=== PATIENT | male | born 1990 | race Caucasian/White ===

== ENCOUNTER 2016-10-08 06:16 | Emergency (ER) | payer BC, SELFPAY ==
[2016-10-08 06:38] LABS: Blood, Urine Negative (Negative); Clarity Clear (Clear); Glucose, Urine (Dipstick) Negative (Negative); Leukocyte Negative (Negative); Nitrite Negative (Negative); Protein, Urine (Dipstick) Trace mg/dL (Neg-Trace)
[2016-10-08] MEDS ORDERED: Ondansetron HCl/PF 4 MG/2 ML Vial ONE (06:46)
[2016-10-08 06:50] LABS: Bilirubin Negative (Negative)
[2016-10-08 06:53] LABS: #Basophils 0.1 thou/uL (0.0-0.2); #Lymphocytes 1.1 thou/uL (1.20-3.40); #Monocytes 0.7 thou/uL (0.11-0.59); #Neutrophils 8.6 thou/uL (1.40-6.50); %Basophils 0.6 % (0.0-1.0); %Eosinophils 0.3 % (0.0-10.0); %Lymphocytes 10.5 % (21.0-51.0); %Monocytes 6.8 % (0.0-10.0); %Neutrophils 81.7 % (42.0-75.0); Hemoglobin 15.7 g/dL (14.0-18.0); Mean Corpuscular HGB CONC 31.4 g/dL (32.0-36.0); Mean Corpuscular Volume 82.8 fl (80.0-94.0); Platelet Count 200 thou/uL (130-400); RBC Distribution Width 13.5 % (11.5-14.5); Red Blood Cell (RBC) Count 6.04 mill/uL (4.70-6.10); White Blood Cell (WBC) Count 10.5 thou/uL (4.8-10.8)
[2016-10-08 06:57] LABS: ALT (SGPT) 59 U/L (0-55); AST (SGOT) 35 U/L (5-34); Albumin 4.5 g/dL (3.5-5.0); Alkaline Phosphatase 77 U/L (40-150); Anion Gap 14 mmol/L (10-20); BUN (Urea Nitrogen) 15 mg/dL (8.9-20.6); Bilirubin, Total 0.6 mg/dL (0.2-1.2); Calc. Creatinine Clearance 0 mL/min (70-130); Calcium 8.8 mg/dL (7.8-10.44); Carbon Dioxide 24 mmol/L (22-29); Chloride 105 mmol/L (98-107); Estimated GFR-MDRD 74; Globulin 3.4 g/dL (2.4-3.5); Glucose 116 mg/dL (70-105); Lipase 17 U/L (8-78); Potassium 3.6 mmol/L (3.5-5.1); Protein, Total 7.9 g/dL (6.0-8.3); Sodium 139 mmol/L (136-145)
[2016-10-08] MEDS ORDERED: Piperacillin/Tazobactam 3.375 GM VIAL ONE (07:58)
[2016-10-08] MEDS ORDERED: Sodium Chloride 0.9% 100 ML ONE (07:58)
--- NOTE | 2016-10-08 21:40 | CT ---
PRELIMINARY REPORT/[facility]/EMERGENCY AFTER HOURS PROCEDURE: Addendum created by Melvin Neville MD on 10/08/2016 7:49 AM Central Time ([place] \T\ [place]) The above was read and discussed at approximately 7:49 AM CDT on10/08/2016 with the attending vasyli Dr. RAJAN chandra JASON. Initial Report created on 10/08/2016 7:38 AM Central Time ([place] \T\ [place]) EXAM: CT Abdomen and Pelvis With Intravenous Contrast CLINICAL HISTORY: 26 years old, male; Pain; Abdominal pain; Acute; Patient HX: Rlq pain rebound tenderness TECHNIQUE: Axial computed tomography images of the abdomen and pelvis with intravenous contrast. Coronal reform atted images were created and reviewed. EXAM DATE/TIME: 10/08/2016 7:07 AM COMPARISON: No relevant prior studies available. FINDINGS: Lower thorax: Mild dependent atelectasis is present. ABDOMEN: Liver: Mild fatty infiltration of the liver. Gallbladder and bile ducts: Unremarkable. Pancreas: Unremarkable. Spleen: normal Adrenals: Unremarkable. No mass. Kidneys and ureters: Unremarkable. No solid mass. No hydronephrosis. Stomach and bowel: Air and fluid filled large bowel. Numerous loops of air and fluid filled small jennifer wel. Nondilated. Favor ileus. Appendix: Apparent calcifications adjacent to the origin of the appendix. The appendix is mildly pro minent extending inferiorly adjacent to the right psoas muscle. Diameter of approximately 9 mm. Correlate clinically regarding early appendicitis. PELVIS: Bladder: Unremarkable. No mass. Reproductive: normal. No mass ABDOMEN and PELVIS: Intraperitoneal space: No free fluid within the pelvis or within the dependent portions of the perit oneum. No free air. Bones/joints: No acute fracture. No dislocation. Soft tissues: Unremarkable. Vasculature: Unremarkable. No abdominal aortic aneurysm. Lymph nodes: -Numerous mesenteric lymph nodes. Correlate regarding the possibility of an enteritis a nd/or adenitis. IMPRESSION: 1. Apparent calcifications adjacent to the origin of the appendix. The appendix is mildly prominent extending inferiorly adjacent to the right psoas muscle. Diameter of approximately 9 mm. Correlate c linically regarding early appendicitis. 2. Mild fatty infiltration of the liver. 3. Air and fluid filled large bowel. 4. Numerous loops of air and fluid filled small bowel. Nondilated. Favor ileus. 5. -Numerous mesenteric lymph nodes. Correlate regarding the possibility of an enteritis and/or marycarmen itis. Thank you for allowing us to participate in the care of your patient. Dictated and Authenticated by: Melvin Neville MD 10/08/2016 7:38 AM Central Time ([place] \T\ [place]) FINAL REPORT CT ABDOMEN AND PELVIS WITH CONTRAST 10/08/[address] of the abdomen and pelvis was performed for evaluation of right lower quadrant pain. Axial slices were acquired and coronal reconstructions were done after giving IV contrast. oral contrast was withheld by request. The patient presents with right lower quadrant pain. The lung bases show several areas of linear stranding suggestive of subsegmental atelectasis. Any fl uid present is minimal. The liver is not enlarged, but is diffusely low in density consistent with diffuse fatty infiltratio n. The spleen is mildly enlarged measuring about 15 cm in length on the axial images. The pancreas, adrenal glands, kidneys, and abdominal aorta appear normal. The gallbladder contains no evident ston es. There are minimally dilated fluid filled loops of small bowel that are in a nonspecific pattern, mor e typical of an ileus than obstruction. A considerable amount of gas is seen in the colon with porti ons of the right colon measuring up to 6 cm in diameter. None of the bowel wall seems thick. There i s an impressive amount of mesenteric adenopathy. Attention is drawn to the right lower quadrant where one sees the appendix. It is mildly enlarged me asuring 9 mm in diameter. It is fluid filled. Any stranding around it is only slight. There is sligh t enhancement of its garcia. Some calcifications are seen in the base of the cecum at the appendix. T he findings are suspicious for early appendicitis. No free air or free fluid was seen. CT of the pelvis shows no pelvic masses, fluid collections or inflammatory changes. IMPRESSION: 1. Suspicious for early appendicitis. Correlate with clinical exam. 2. Prominent amounts of mesenteric adenopathy. The possibility of mesenteric adenitis is also r aised. 3. Diffuse fatty infiltration of the liver. 4. Mild splenomegaly. Report in agreement with preliminary reading by Kellee. POS: HOME
== END 2016-10-08 08:12 | disposition short-term general hospital (02) ==
LOC: BURERS 06:16
DX: K35.80 Unspecified acute appendicitis (principal)
CPT/HCPCS: 74177; 80053; 81003; 83690; 85025; 96361; 96374; 96375; J2270; J2405; J2543; J7050